=== PATIENT | female | born 1960 | race Two or more races ===

== ENCOUNTER → 2024-08-21 | Outpatient (CLI) | payer MEDICARE, MEDICAID, SELFPAY ==
--- NOTE | 2024-08-21 09:00 | XR_ITS ---
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
== END | disposition home or self-care (01) ==
PROVIDERS: PCP Obstetrics & Gynecology; Referring Provider Internal Medicine Gastroenterology; Visit Provider Internal Medicine Gastroenterology
DX: Z12.11 Encounter for screening for malignant neoplasm of colon (principal); K59.00 Constipation, unspecified
CPT/HCPCS: 74270

== ENCOUNTER 2025-05-30 08:45 | Emergency (ER) | payer MEDICARE, MEDICAID, SELFPAY ==
[2025-05-30 09:12] VITALS: BP 145/82; PULSE 75; RESP 17; TEMP 37.3; O2SAT 99
--- NOTE | 2025-05-30 09:18 | XR_ITS ---
Examination: CT abdomen and pelvis without contrast. Coronal 3-D reconstructions. Sagittal 2-D reconstructions. Date and time of exam:May 30, 2025, 0932 hours, comparison February 15, 2020 INDICATIONS: Onset generalized abdominal pain today CTDI: vol (mGy): 6.45 DLP: (mGycm): 371 Technique: Axial images of the abdomen have been obtained, 3 mm slice thickness Intravenous contrast material has not been administered. Low dose protocols were performed. One or more of the following dose reduction techniques were used; automated exposure control, adjustment of the mA and/or KV according to patient size, use of iterative reconstruction technique. Findings: 19 mm left lobe liver cyst Spleen is not enlarged No gallstones No pancreatic mass. Minimal nodular thickening left adrenal gland Mild renal scar formation, no renal or ureteral calculi, no hydronephrosis Aorta normal size No bowel obstruction No diverticulitis Absent uterus No pelvic mass No pericecal inflammatory change Normal appendix, limits 95, cecum is in the pelvis Prominent osteopenia Chronic osteoporotic compression L4, advanced degenerative disc disease L5-S1 Moderate narrowing hip joints IMPRESSION: Mild renal scar formation, no renal or ureteral calculi, no hydronephrosis Normal appendix No bowel obstruction or diverticulitis Urinary bladder intact Advanced degenerative disc disease L5-S1
--- NOTE | 2025-05-30 09:18 | XR_ITS ---
Examination: CT brain head without contrast. 2-D sagittal coronal reconstructions Date and time of exam:May 30, 2025 0930 hours INDICATIONS: Onset generalized head pain beginning this morning CTDI: vol (mGy):46.9 DLP: (mGycm):1010 Technique: Multiple CT axial sections of the brain have been obtained, 5 mm slice thickness. Contrast has not been administered. 2-D sagittal, coronal reconstructions have been obtained Low dose protocols were performed. One or more of the following dose reduction techniques were used; automated exposure control, adjustment of the mA and/or KV according to patient size, use of iterative reconstruction technique. Findings: No significant ventricular enlargement. Intra-axial or extra-axial hemorrhage density is not seen. No mass effect or midline shift Basal cisterns are not remarkable. Fourth ventricle is midline. Cranial vault intact. Empty sella syndrome with mildly enlarged sella turcica Impression: Negative for acute hemorrhage, mass effect or midline shift Mild to moderate chronic ethmoid sinusitis Prominent hypertrophy inferior nasal turbinates with mucosal thickening in the nasal airways Empty sella syndrome with mildly enlarged sella turcica, consider ELECTIVE brain MRI follow-up pre and postcontrast
--- NOTE | 2025-05-30 09:21 | PD.EDRME ---
Rapid Medical Screening Exam RME Arrival date/time: 05/30/25 08:45 65-year-old female presents to the Emergency Department for complaint of headache and abdominal pain x 1 week Chief Complaint: General Adult/Misc Complain Vital signs: Vital Signs Temperature 99.2 F 05/30/25 09:12 Pulse Rate 75 05/30/25 09:12 Respiratory Rate 17 05/30/25 09:12 Blood Pressure 145/82 H 05/30/25 09:12 Pulse Oximetry (%) 99 05/30/25 09:12 Oxygen Delivery Method Room Air 05/30/25 09:12
[2025-05-30 10:05] LABS: Basophils # (Auto) 0.0 Thou/mm3 (0.0-0.2); Basophils % (Auto) 0 % (0-2.5); Eosinophils # (Auto) 0.1 Thou/mm3 (0.0-0.5); Eosinophils % (Auto) 1 % (0-10); Hematocrit 39.2 % (36.0-46.0); Hemoglobin 12.5 g/dL (12.0-16.0); Immature Granulocytes Auto 0.03 Thou/mm3 (0.00-0.00); Lymphocytes # (Auto) 1.7 Thou/mm3 (1.0-4.8); Lymphocytes % (Auto) 19 % (10-50); Mean Corpuscular HGB Conc 31.9 g/dl (31.0-37.0); Mean Corpuscular Hemoglobin 27.7 pg (25.0-35.0); Mean Corpuscular Volume 87 fL (80-100); Monocytes # (Auto) 0.6 Thou/mm3 (0.0-0.8); Monocytes % (Auto) 7 % (0-12); Neutrophils # (Auto) 6.6 Thou/mm3 (1.8-7.7); Neutrophils % (Auto) 73 % (37-80); Nucleated Red Blood Cell # 0.00 Thou/mm3 (0.00-0.00); Nucleated Red Blood Cell % 0 /100 WBC (0); Platelet Count 400 Thou/mm3 (140-440); RDW Standard Deviation 40.5 fL (36.4-46.3); Red Blood Count 4.52 Miln/mm3 (4.00-5.20); White Blood Count 9.1 Thou/mm3 (3.6-11.0)
[2025-05-30 10:27] LABS: Alanine Aminotransferase 16 U/L (10-49); Albumin, Serum 4.4 gm/dL (3.4-4.8); Albumin/Globulin Ratio 1.3 (1.2-2.2); Alkaline Phosphatase 82 U/L (46-116); Amylase 30 U/L (30-118); Anion Gap 9 (7-16); Aspartate Amino Transferase 15 U/L (0-34); BUN/Creatinine Ratio 21 Ratio (12-20); Bilirubin,Total 0.3 mg/dL (0.3-1.2); Blood Urea Nitrogen 15 mg/dL (9-23); Calcium 10.3 mg/dL (8.3-10.6); Calcium (Corrected) 10.3 mg/dL (8.5-10.1); Carbon Dioxide 33.7 mMol/L (20.0-31.0); Chloride 100 mMol/L (98-107); Creatinine (Component) 0.7 mg/dL (0.6-1.3); Globulin 3.5 gm/dL (2.3-3.5); Glucose 105 mg/dL (74-106); Osmolality,Calculated 285 (275-295); Potassium 3.9 mMol/L (3.4-5.1); Sodium 143 mMol/L (136-145); Total Protein 7.9 gm/dL (5.7-8.2); Troponin I < 0.002 ng/mL (0.0-0.045); eGFR > 60 See Note
--- NOTE | 2025-05-30 11:22 | PD.EDADULT ---
ED General RME/HPI General Chief complaint: General Adult/Misc Complain Stated complaint: FEELS DISORIENTED, DIZZY X 1 WK Time Seen by Provider: 05/30/25 11:12 Arrival date/time: 05/30/25 08:45 RME / HPI RME / HPI narrative: 65-year-old female patient with significant history of hypertension diabetes mellitus, depression, was brought in by family for evaluation regarding multiple complaints. Patient complaining of epigastric pain, described as burning-like sensation, severity moderate, associated with 4 episode of vomiting, nonbloody. Patient also complained of generalized body weakness, dizziness, and sometimes cannot think straight. Patient denies any upper or lower extremity weakness. Patient denies any head trauma or fall. Denies any fever. Currently taking depression medication, omeprazole, which according to the patient is not really helping. Her symptoms is been ongoing for more than several weeks getting worse for the last 1 week. Related Data Home Medications ?Medication ?Instructions ?Recorded ?Confirmed aspirin 81 mg tablet 81 mg PO QDAY 06/20/20 08/15/20 [id number] 250 1 tab PO Q6H PRN Pain 06/20/20 08/15/20 mg-250 mg-65 mg tablet (Excedrin Extra Strength) cetirizine 10 mg tablet 10 mg PO QDAY 06/20/20 08/15/20 lisinopril 20 1 tab PO QDAY 06/20/20 08/15/20 mg-hydrochlorothiazide 12.5 mg tablet meclizine 25 mg tablet 25 mg PO TID PRN Nausea 06/20/20 08/15/20 metformin 500 mg tablet 500 mg PO QDAY 06/20/20 08/15/20 omeprazole magnesium 20 mg 20 mg PO QDAY 06/20/20 08/15/20 tablet,delayed release (Prilosec OTC) polyethylene glycol 3350 8.5 gram 8.5 g PO BID 08/15/20 08/15/20 oral powder packet Previous Rx's ?Medication ?Instructions ?Recorded loperamide 2 mg capsule 2 mg PO Q6H PRN loose stool #14 12/10/22 caps famotidine 40 mg tablet (Pepcid) 40 mg PO BID #30 tabs 05/30/25 metoclopramide HCl 10 mg tablet 10 mg PO Q6H PRN nausea and 05/30/25 (Reglan) vomiting #14 tabs Allergies Allergy/AdvReac Type Severity Reaction Status Date / Time Nitrofuran Analogues Allergy Severe ELEVATED Verified 05/30/25 08:53 TEMP sulfamethoxazole Allergy Severe ELEVATED Verified 05/30/25 08:53 TEMP. trimethoprim Allergy Severe ELEVATED Verified 05/30/25 08:53 TEMP. diphenhydramine Allergy Mild Anxiety Verified 05/30/25 08:53 Review of Systems Review of Systems Narrative Review of Systems: Review of system reviewed and within normal limits except mentioned in HPI ED Exam Narrative Physical exam: VITAL SIGNS: Reviewed. GENERAL APPEARANCE: Alert and interactive, follows commands, no acute distress, GCS 15 HEAD AND FACE: Non-traumatic. ENT: PERRL, pink conjunctivitis, eyelid no trauma, Mucous membrane moist. NECK: Supple, nontender, no nuchal rigidity. CHEST: No tenderness, no crepitus, no paradoxical movement, no retractions. LUNGS: Clear, well ventilated, symmetric, no rales, no wheezing, no ronchi, no stridor, good breath sounds bilaterally. HEART: Regular rate, regular rhythm, no murmur, no gallops. ABDOMEN: Soft, positive bowel sounds, nondistended, no guarding, epigastric tenderness, no rebound, no masses, RECTAL: Deferred. GENITAL: Deferred. NEUROLOGICAL: Gross motor function intact sensory function intact, Appropriate for age. MUSCULOSKELETAL: low back nontender, full range of motion. EXTREMITIES: Nontender, full range of motion. SKIN: Color pink, dry, no rash, no lacerations, no abrasions, no contusions. LYMPHATICS: Deferred. Course Quality Measures none Orders Category Date Time Status CT abdomen pelvis wo con Stat Exams 05/30/25 09:[address] head/brain wo con Stat Exams 05/30/25 09:18 Completed Amylase Stat Lab 05/30/25 09:38 Completed CBC Stat Lab 05/30/25 09:38 Completed Comprehensive Metabolic Panel Stat Lab 05/30/25 09:38 Completed Troponin I Stat Lab 05/30/25 09:38 Completed UA, C/S IF [Urinalysis, C/S if Indicated] Stat Lab 05/30/25 11:55 Results Famotidine Inj [Pepcid Inj] Med 05/30/25 11:28 Discontinued 20 mg IVP X1 ONE Ondansetron Inj [Zofran Inj] Med 05/30/25 11:28 Discontinued 4 mg IVP X1 ONE Ringers Lactated 1000 ml [Lactated Ringers] 1,000 ml Med 05/30/25 11:28 Discontinued IV 999 mls/hr Vital Signs Vital signs: Vital Signs Temperature 99.2 F 05/30/25 09:12 Pulse Rate 75 05/30/25 09:12 Respiratory Rate 17 05/30/25 09:12 Blood Pressure 145/82 H 05/30/25 09:12 Pulse Oximetry (%) 99 05/30/25 09:12 Oxygen Delivery Method Room Air 05/30/25 09:12 Discharge Plan Plan Patient Disposition: HOME (Self Care) Discharge Disposition comment: Stable Prescriptions/Referrals Prescriptions/Med Rec: New famotidine [Pepcid] 40 mg tablet 40 mg PO BID Qty: 30 0RF metoclopramide HCl [Reglan] 10 mg tablet 10 mg PO Q6H PRN (Reason: nausea and vomiting) Qty: 14 0RF No Action metformin 500 mg Tablet 500 mg PO QDAY cetirizine 10 mg Tablet 10 mg PO QDAY lisinopril-hydrochlorothiazide 20-12.5 mg Tablet 1 tab PO QDAY meclizine 25 mg Tablet 25 mg PO TID PRN (Reason: Nausea) aspirin 81 mg Tablet 81 mg PO QDAY Excedrin Extra Strength 250-250-65 mg Tablet 1 tab PO Q6H PRN (Reason: Pain) omeprazole magnesium [Prilosec OTC] 20 mg Tablet,Delayed Release (Dr/Ec) 20 mg PO QDAY polyethylene glycol 3350 8.5 gram Powder In Packet 8.5 g PO BID loperamide 2 mg capsule 2 mg PO Q6H PRN (Reason: loose stool) Qty: 14 0RF Rx Instructions: hold if no bm Referrals: Kishore Lieberman MD [Primary Care Provider, [employer]] - In 1 week Problem List Clinical Impression: Epigastric pain, Weakness generalized Patient/Caregiver Discharge Instructions Discharge Activity: activity as tolerated Education Materials: ED Weakness (Uncertain Cause) Additional Instructions: Thank you for the opportunity for serving you today. You are stable for discharged . You are advised to: Follow-up with your PCP in 1 to 2 days Return to ED for worsening of symptoms Increase oral fluids Take medication as prescribed As your PCP regarding outpatient MRI of your brain today CT scan showed possible empty sella turcica syndrome. This is not an emergency however needs to be addressed outpatient. Stop your omeprazole for 2 weeks. Print Language: Arabic Stand Alone Forms: Elif Award Info., Patient Portal Info Letter LALO/FABIO Supervising Physician LALO/FABIO Supervising Physician: MD Tano MDM Narrative MDM hospital course (for use when minimal MDM required): 65-year-old female patient with significant history of hypertension diabetes mellitus, depression, was brought in by family for evaluation regarding multiple complaints. Patient complaining of epigastric pain, described as burning-like sensation, severity moderate, associated with 4 episode of vomiting, nonbloody. Patient also complained of generalized body weakness, dizziness, and sometimes cannot think straight. Patient denies any upper or lower extremity weakness. Patient denies any head trauma or fall. Denies any fever. Currently taking depression medication, omeprazole, which according to the patient is not really helping. Her symptoms is been ongoing for more than several weeks getting worse for the last 1 week. Patient's workup today all came back unremarkable including CT scan of the head except for possible MDS sella turcica syndrome, patient is elective MRI per recommendation from radiologist. Patient's symptoms completely gone after patient received IV fluids. Patient is ambulatory. CT scan of the abdomen pelvis showed Mild renal scar formation, no renal or ureteral calculi, no hydronephrosis Normal appendix No bowel obstruction or diverticulitis Urinary bladder intact Advanced degenerative disc disease L5-S1 Patient was advised to closely follow-up with PCP in the morning and asked for outpatient MRI. Patient agrees with the plan. Medication Administration(s) Medication Administration History Discontinued Medications Famotidine (Famotidine Inj 10 Mg/Ml Vial 2 Ml) 20 mg IVP X1 ONE Stop: 05/30/25 11:29 Last Admin: 05/30/25 12:15 Dose: 20 mg Documented By: BETTY Lactated Ringer's (Lactated Ringers) 1,000 mls @ 999 mls/hr IV .Q1H1M ONE Stop: 05/30/25 12:28 Last Infusion: 05/30/25 13:13 Dose: Infused Documented By: Admin: 05/30/25 12:10 Dose: 999 mls/hr Documented By: BETTY Ondansetron HCl (Ondansetron Inj 2 Mg/Ml Inj 2 Ml) 4 mg IVP X1 ONE; Protocol Stop: 05/30/25 11:29 Last Admin: 05/30/25 12:12 Dose: 4 mg Documented By: BETTY Diagnosis Differential Diagnosis ED Complaint MDM: Generalized weakness, dizziness, epigastric pain, dehydration although pt's Diagnoses ruled out and/or further discussions: Generalized weakness, epigastric pain
[2025-05-30 12:00] VITALS: BP 124/72; PULSE 58; RESP 16; O2SAT 99
[2025-05-30] MEDS: RINGERS LACTATED 1000 ML 1,000 ML 999 ML IV (12:10)
[2025-05-30 12:12] LABS: Collection Type, Urine Clean Catch
[2025-05-30] MEDS: ONDANSETRON INJ 2 MG/ML INJ 2 ML 4 MG IVP (12:12)
[2025-05-30] MEDS: FAMOTIDINE INJ 10 MG/ML VIAL 2 ML 20 MG IVP (12:15)
[2025-05-30 12:40] LABS: RBC,Urine 2 /hpf (0-3); Squamous Epithelial Cell,Urine < 1 /hpf (0-5); WBC,Urine 1 /hpf (0-5)
[2025-05-30 13:16] LABS: Bilirubin,Urine Negative (Negative); Blood,Urine Negative (Negative); Clarity,Urine Clear (Clear/Hazy); Color,Urine Lt-Yellow (Lt Yel-Yel); Glucose, Urine 1+ (Negative); Ketones,Urine Negative (Negative); Leukocyte Esterase,Urine Negative (Negative); Nitrite,Urine Negative (Negative); PH,Urine 8.0 (5.0-7.0); Protein,Urine Negative (Neg - Trace); Specific Gravity,Urine 1.010 (1.001-1.035); Urobilinogen,Urine Negative mg/dL (0.0-1.0)
[2025-05-30 13:17] LABS: Culture Indicated,Urine Not Indicated
[2025-05-30 13:46] VITALS: BP 119/67; PULSE 56; RESP 16; TEMP 36.7; O2SAT 95
== END 2025-05-30 13:58 | disposition home or self-care (01) ==
PROVIDERS: Nurse Practitioner Primary Care; Emergency Provider Emergency Medicine; PCP Obstetrics & Gynecology
DX: R10.13 Epigastric pain (principal); R53.1 Weakness; R42 Dizziness and giddiness; E11.9 Type 2 diabetes mellitus without complications; I10 Essential (primary) hypertension
CPT/HCPCS: 36415; 70450; 74176; 80053; 81001; 82150; 84484; 85025; 96361; 96374; 96375; 99284; J2405; J3490; J7120